=== PATIENT | male | born 1970 | race Caucasian/White ===

== ENCOUNTER 2018-04-20 11:09 | Emergency (ER) | payer OTHER ==
[~2018-04-20 11:09] MED LIST: ISOVUE-370 76%-LOCM 1 ML ONE
[2018-04-20 12:12] LABS: Bilirubin Negative (Negative); Blood, Urine Negative (Negative); Clarity CLEAR (Clear); Glucose, Urine (Dipstick) Negative (Negative); Leukocyte Negative (Negative); Nitrite Negative (Negative); Protein, Urine (Dipstick) Negative (Neg-Trace); Specific Gravity, Urine 1.017 (1.002-1.036); Urobilinogen 0.2 mg/dL (0.2-1.0)
[2018-04-20] MEDS ORDERED: Morphine 4 MG/ML VIAL ONE (13:48)
[2018-04-20] MEDS ORDERED: Ondansetron ODT 4 MG TAB ONE (13:48)
--- NOTE | 2018-04-20 14:49 | CT ---
CT ABDOMEN AND PELVIS WITH IV CONTRAST: Date: 04-20-18 History: Abdominal pain for 2-3 days. Nausea and vomiting and lower back pain. Comparison: 03-16-18 FINDINGS: The lung bases, liver, spleen, pancreas, bilateral adrenal glands, left kidney, and urinary bladder d emonstrate a normal CT appearance. There is a focal area of mild scarring involving the right kidney, with subcentimeter too small to characterize hypodense lesion at the inferior pole right kidney. The re is no hydronephrosis. Mild vascular calcification is seen in the abdominal aorta and involving the iliac arteries. There are post-surgical changes seen involving the most proximal sigmoid colon. There is colonic dive rticulosis present. The appendix is visualized and normal in caliber. There has been no interval terry ge when compared to the prior exam. IMPRESSION: No acute findings are seen in the abdomen or pelvis. CT scan of the abdomen and pelvis is overall sta ble compared to the prior exam. POS: [facility]
== END 2018-04-20 16:20 | disposition home or self-care (01) ==
LOC: ERS 11:09
DX: K57.30 Diverticulosis of large intestine without perforation or abscess without bleeding (principal); K21.9 Gastro-esophageal reflux disease without esophagitis; F17.210 Nicotine dependence, cigarettes, uncomplicated; F43.10 Post-traumatic stress disorder, unspecified
CPT/HCPCS: 74177; 81003; 96361; 96374; J2270; Q0162

== ENCOUNTER 2020-03-26 13:04 | Observation (INO) | payer OTHER ==
[2020-03-26] MEDS ORDERED: Lorazepam 2 MG/ML VIAL ONE (13:12)
[2020-03-26] MEDS ORDERED: Mag-Al 1200 mg/1200 mg/30 ML UDCUP ONE (14:23)
[2020-03-26] MEDS ORDERED: Lidocaine Viscous Sol 2% 15 ml UD Cup ONE (14:23)
[2020-03-26] MEDS ORDERED: Acetaminophen 325 MG TAB PO PRN ×2 (15:44→16:12)
[2020-03-26] MEDS ORDERED: Sodium Chloride 0.9% 1,000 ML IV SCH (15:44)
[2020-03-26] MEDS ORDERED: Ondansetron PF 4 MG/2 ML Vial IVP PRN ×2 (15:44→16:12)
[2020-03-26] MEDS ORDERED: Ondansetron ODT 4 MG TAB SL PRN (15:44)
[2020-03-26 15:59] VITALS: BMI 35.9
[2020-03-26] MEDS ORDERED: HYDROcodone/Acetaminophen 5/325 mg Tablet PO PRN (16:12)
[2020-03-26] MEDS ORDERED: Bisacodyl 10 MG SUPP PR PRN (16:12)
[2020-03-26] MEDS ORDERED: Senokot S 8.6-50 MG TAB PO PRN (16:12)
[2020-03-26] MEDS ORDERED: Guaifenesin DM 100-10/5 ML UDCUP PO PRN (16:12)
[2020-03-26] MEDS: Sodium Chloride 0.9% 1,000 ML IV SCH (16:42)
[2020-03-26 16:53] LABS: Hemoglobin A1c 5.5 % (4.0-6.0)
[2020-03-26 17:09] LABS: Lactic Acid 2.8 mmol/L (0.5-2.2)
--- NOTE | 2020-03-26 17:38 | HP ---
REASON FOR ADMISSION: Chest pain. HISTORY OF PRESENTING ILLNESS: The patient gives history of retrosternal chest pain which woke him up around 3 in the morning. He also developed some chills and sweating and in fact, threw up once. He finally woke his up around 7:30 in the morning, and she called EMS, and the patient was taken to [facility] from where he was transferred here. There are no complaints of cough or expectoration. No fever. No complaints of urinary frequency or urgency. The chest pain is 10/10 in intensity and is worse on deep coughing and manual pressure on the chest wall. There are no complaints of palpitations, PND, or orthopnea. No prior cardiac workup. PAST MEDICAL AND SURGICAL HISTORY: History of CVA in May of 2019, has had a complete stroke workup done per . He has had right hemiparesis and has difficulty with speech as well. He was also diagnosed with sleep apnea, but the patient is noncompliant with CPAP, seizure disorder, PTSD, colon resection for diverticulitis 8 years back, knee surgery when he was in high school for likely cartilage damage, hypertension, dyslipidemia, PTSD, the patient is an [place] , and dyslipidemia. CURRENT MEDICATIONS: Please note the patient cannot recall all of his medications, but he knows he is taking; 1. A pill for hypertension. 2. A statin. 3. Plavix. 4. No aspirin. 5. Oxcarbazepine twice daily. 6. Prozac 40 mg twice daily. 7. Vitamin D. 8. Ultram p.r.n. 9. Hydroxyzine p.r.n. ALLERGIES: TO MOTRIN WHICH CAUSES NAUSEA, BUT HE DOES NOT KNOW IF IT CAUSES ANY OTHER TROUBLE HE IS SCARED TO TAKE IT. PERSONAL HISTORY: Smokes half pack a day. Does not abuse alcohol or drugs. The patient is from last 8 years. FAMILY HISTORY: Both parents are healthy as far as he knows. Has a sister who has history of asthma. Code status is full. Power of united [place] attorney is his , Ms. Ashton. REVIEW OF SYSTEMS: CONSTITUTIONAL: Negative for weight loss or gain, ability to conduct usual activities. SKIN: Negative for rash, itching. EYES: Negative for double vision, pain. ENT/MOUTH: Negative for nose bleeding, neck stiffness, pain, tenderness. CARDIOVASCULAR: Negative for palpitations, dyspnea on exertion, orthopnea. RESPIRATORY: Negative for shortness of breath, wheezing, cough, hemoptysis, fever or night sweats. GASTROINTESTINAL: Negative for poor appetite, abdominal pain, heartburn, nausea, vomiting, constipation, or diarrhea. GENITOURINARY: Negative for urgency, frequency, dysuria, nocturia. MUSCULOSKELETAL: Negative for pain, swelling. NEUROLOGIC/PSYCHIATRIC: Negative for anxiety, depression. ALLERGY/IMMUNOLOGIC: Negative for skin rash, bleeding tendency. PHYSICAL EXAMINATION: GENERAL: The patient is a 49-year-old male, who is currently not in any acute distress. VITAL SIGNS: Blood pressure 158/100, pulse 60 per minute, respiratory rate 16 per minute, temperature 97.8 degrees Fahrenheit, and saturating 100% on room air. NECK: Supple. No elevated JVD. HEENT: Eyes; extraocular muscles intact. Pupils reacting to light. Oral cavity, mucous membranes are moist. No exudates or congestion. CARDIOVASCULAR SYSTEM: S1 and S2 heard. Regular rhythm. RESPIRATORY: Air entry 1+ bilateral. No rales or rhonchi. ABDOMEN: Soft. Bowel sounds heard. No tenderness, rigidity, or guarding. EXTREMITIES: No peripheral edema or calf tenderness. VASCULAR SYSTEM: Peripheral pulses 2+ bilateral. No ischemic ulcerations or gangrene. CENTRAL NERVOUS SYSTEM: No gross focal deficits noted. The patient is alert, awake, and oriented. The patient is lethargic at present as he received Ativan in the ER. Otherwise, no obvious hallucinations or delusions. LABORATORY DATA: CT aortic dissection protocol done, shows no evidence of dissection. Ascending aorta is dilated with no dissection. It measures around 4.2 cm. There is no PE. There is prominent calcification in mid LAD. Large bulging disk at L4-5. Influenza A and B antigens are negative. EKG done, shows sinus bradycardia at 53 beats per minute with nonspecific ST-T wave changes. Serum glucose 183, BUN 16, creatinine 1.1, serum bicarb 18. Electrolytes are stable. Lactic acid is 3.9. Liver enzymes within normal limits. Troponin x2 negative. Albumin is 4.6, lipase is 65. D-dimer 0.38. White count of 13, H and H 16 and 49, platelet count 430, with 78% neutrophils, MCV is 91. CLINICAL IMPRESSION AND PLAN: The patient will be under observation on telemetry for atypical chest pain, but has multiple risk factors for acute coronary syndrome. We will place him on nitroglycerin paste half-inch q.8 hourly. Continue his Plavix as before. A small dose of Lopressor, Crestor. We will continue his Neurontin, oxcarbazepine, and Prozac as before. Echo with 2D Doppler to check for aortic valve in view of ascending aortic dilatation. We will also obtain Cardiology consultation as the patient might require ongoing evaluation of this area. He has had calcification of his mid left anterior descending artery and recent cerebrovascular accident as well, the patient is obese and likely is a diabetic as well with serum sugars of 180 on arrival. We will obtain HbA1c level. I have given complete updates to the patient's , Ms. Ashton. She will be calling us with exact dosing of his medications once she reaches home. Job ID: [id number]
[2020-03-26 17:41] LABS: Troponin I Less than 0.010 ng/mL (< 0.028)
[2020-03-26] MEDS: Famotidine/PF 20 mg/2ml Vial SLOW IVP SCH ×2 (20:28→23:18)
[2020-03-26] MEDS: Gabapentin 300 MG CAP PO SCH (20:31)
[2020-03-26] MEDS: Metoprolol Tartrate 25 MG TAB PO SCH (20:31)
[2020-03-26] MEDS: FLUoxetine HCl 20 MG CAP PO SCH (20:31)
[2020-03-26] MEDS: Nitroglycerin 2% Ointment 1 INCH/1 GM Packet TOP SCH (20:37)
[2020-03-26 21:00] LABS: Troponin I 0.037 ng/mL (< 0.028)
[2020-03-26] MEDS ORDERED: Rosuvastatin 20 MG TAB PO SCH (21:00)
[2020-03-26] MEDS ORDERED: OXcarbazepine 300 MG TAB PO SCH (21:00)
[2020-03-27 04:49] LABS: #Lymphocytes 1.9 thou/uL (1.20-3.40); #Monocytes 1.1 thou/uL (0.11-0.59); #Neutrophils 8.8 thou/uL (1.40-6.50); %Basophils 0.3 % (0.0-1.0); %Eosinophils 0.1 % (0.0-10.0); %Lymphocytes 16.2 % (21.0-51.0); %Monocytes 9.6 % (0.0-10.0); %Neutrophils 73.8 % (42.0-75.0); Hemoglobin 15.1 g/dL (14.0-18.0); Mean Corpuscular HGB CONC 32.5 g/dL (32.0-36.0); Mean Corpuscular Hemoglobin 30.3 pg (27.0-31.0); Mean Corpuscular Volume 93.3 fL (78.0-98.0); Mean Platelet Volume 7.4 fL (7.4-10.4); Platelet Count 392 thou/uL (130-400); RBC Distribution Width 12.2 % (11.5-14.5); Red Blood Cell (RBC) Count 4.99 mill/uL (4.70-6.10); White Blood Cell (WBC) Count 11.9 thou/uL (4.8-10.8)
[2020-03-27 05:02] LABS: Anion Gap 14 mmol/L (10-20); BUN (Urea Nitrogen) 13 mg/dL (8.9-20.6); Calc. Creatinine Clearance 110 mL/min (70-130); Calcium 9.1 mg/dL (7.8-10.44); Carbon Dioxide 21 mmol/L (22-29); Cardiac Risk 5.1 (Less than 4.5); Chloride 106 mmol/L (98-107); Cholesterol 215 mg/dl (< 200 Desired); Estimated GFR-MDRD 78; Glucose 109 mg/dL (70-105); HDL Cholesterol 42 mg/dL (>60 Neg Risk); LDL Cholesterol, Calculated 155 mg/dL; Potassium 4.1 mmol/L (3.5-5.1); Sodium 137 mmol/L (136-145); Triglycerides 91 mg/dL (Less than 150)
[2020-03-27] MEDS: traMADol HCl 50 MG TAB PO PRN ×2 (05:24→12:13)
[2020-03-27] MEDS: Sodium Chloride 0.9% 1,000 ML IV SCH (05:27)
[2020-03-27] MEDS: Nitroglycerin 2% Ointment 1 INCH/1 GM Packet TOP SCH (05:29)
[2020-03-27] MEDS ORDERED: Clopidogrel Bisulfate 75 MG TAB PO SCH (09:00)
[2020-03-27] MEDS ORDERED: OXcarbazepine 600 MG TAB PO SCH (09:00)
[2020-03-27] MEDS ORDERED: OXcarbazepine 300 MG TAB PO SCH (09:00)
[2020-03-27] MEDS ORDERED: Enoxaparin Sodium 40 MG/0.4 ML SYRINGE SC SCH (09:00)
[2020-03-27] MEDS ORDERED: ADENOSINE 60 MG/20 ML VIAL ONE (09:26)
[2020-03-27] MEDS: Famotidine/PF 20 mg/2ml Vial SLOW IVP SCH (09:32)
[2020-03-27] MEDS: FLUoxetine HCl 20 MG CAP PO SCH (09:32)
[2020-03-27] MEDS: Gabapentin 300 MG CAP PO SCH (09:32)
[2020-03-27] MEDS: Metoprolol Tartrate 25 MG TAB PO SCH (09:33)
--- NOTE | 2020-03-27 09:57 | PDOC.HOSPP ---
- Subjective Encounter Date: 03/27/20 Encounter Time: 09:40 Subjective: no current chest pain or palp or sob is npo for stress test responds well to verbal questions - Objective Vital Signs & Weight: Vital Signs (12 hours) Temp Pulse Resp BP BP Pulse Ox 03/27/20 07:58 99.0 F 84 16 123/69 97 03/27/20 03:10 98.5 F 47 L 18 134/59 L 95 03/26/20 23:25 96/68 Weight Weight 196 lb 15.602 oz I&O: 03/26/20 03/27/20 03/28/20 06:59 06:59 06:59 Intake Total 1358 Output Total 500 Balance 858 Result Diagrams: 03/27/20 04:22 03/27/20 04:22 Additional Labs: Accuchecks 03/26/20 16:23 POC Glucose 139 H Hospitalist ROS - Medication Medications: Active Medications Generic Name Dose Route Start Last Admin Trade Name Freq PRN Reason Stop Dose Admin Hydrocodone Bitart/Acetaminophen 1 tab 03/26/20 16:12 03/26/20 20:33 [place] 5/325 PO 1 tab Q4H PRN Administration Moderate Pain (4-6) Clopidogrel Bisulfate 75 mg 03/27/20 09:00 03/27/20 09:33 Plavix PO 75 mg DAILY [place] Administration Enoxaparin Sodium 40 mg 03/27/20 09:00 03/27/20 09:35 Lovenox SC 40 mg 0900 [place] Administration Famotidine 20 mg 03/26/20 21:00 03/27/20 09:32 Pepcid SLOW IVP 20 mg Q12HR [place] Administration Gabapentin 300 mg 03/26/20 21:00 03/27/20 09:32 Neurontin PO 300 mg BID [place] Administration Sodium Chloride 1,000 mls @ 100 mls/hr 03/26/20 16:15 03/27/20 05:27 Normal Saline 0.9% IV 1,000 mls .Q10H [place] Administration Metoprolol Tartrate 25 mg 03/26/20 21:00 03/27/20 09:33 Lopressor PO 25 mg BID [place] Administration Nitroglycerin 0.5 inch 03/26/20 22:00 03/27/20 05:29 Nitro-Bid 2% Ointment TOP 0.5 inch Q8HR [place] Administration Oxcarbazepine 600 mg 03/27/20 09:00 03/27/20 09:33 Trileptal PO 600 mg BID [place] Administration Rosuvastatin Calcium 20 mg 03/26/20 21:00 03/26/20 20:31 Crestor PO 20 mg HS [place] Administration Tramadol HCl 50 mg 03/26/20 16:12 03/27/20 05:24 Ultram PO 50 mg Q6H PRN Administration Moderate Pain (4-6) - Exam General Appearance: awake alert Eye: PERRL, anicteric sclera ENT: no oropharyngeal lesions, moist mucosa Neck: supple, no JVD Heart: RRR, no murmur Respiratory: no wheezes, no rales Gastrointestinal: soft, non-tender, non-distended, normal bowel sounds Extremities: no cyanosis, no edema Neurological: hemiplegia, speech deficit Psychiatric: normal affect, A&O x 3 Hosp A/P (1) Chest pain Code(s): R07.9 - CHEST PAIN, UNSPECIFIED Status: Resolved (2) Ascending aortic aneurysm Status: Chronic (3) H/O: CVA (cerebrovascular accident) Code(s): Z86.73 - PRSNL HX OF TIA (TIA), AND CEREB INFRC W/O RESID DEFICITS Status: Chronic (4) Dyslipidemia Code(s): E78.5 - HYPERLIPIDEMIA, UNSPECIFIED Status: Chronic (5) PTSD (post-traumatic stress disorder) Code(s): F43.10 - POST-TRAUMATIC STRESS DISORDER, UNSPECIFIED Status: Chronic - Plan for stress test today echo in view of asc aortic aneurysm to look for aortic valve, ef is chest pain free now on plavix, crestor, lopressor, prozac and gabapentin hemostable await cardio opinion
--- NOTE | 2020-03-27 12:22 | CON ---
DATE OF CONSULTATION: HISTORY OF PRESENT ILLNESS: The patient is an unfortunate 49-year-old gentleman , who has previously suffered a cerebrovascular accident and presents with left- sided chest discomfort. The patient suffered a CVA in May of 2019. He has right hemiparesis and difficulty with aphasia. The patient was in his usual state of health when he presented with left-sided chest discomfort. This apparently lasted for several hours. The patient eventually came to the emergency room. He states his chest pain eventually resolved yesterday evening. The patient denies having any present chest discomfort. The patient states that the pain was left- sided and was was severe. It did not radiate. PAST MEDICAL HISTORY: 1. CVA. 2. Hypertension. 3. Seizure disorder. 4. PTSD. SOCIAL HISTORY: Long history of tobacco use. MEDICATIONS: 1. Tramadol 50 b.i.d. 2. Gabapentin 600 daily. 3. Prozac 40 daily. 4. Lipitor 40 at bedtime. 5. Norvasc 10 daily. ALLERGIES: NO KNOWN DRUG ALLERGIES. REVIEW OF SYSTEMS: Ten-point system otherwise unremarkable. No history of easy bruising or bleeding. PHYSICAL EXAMINATION: GENERAL: A well-developed gentleman, in no acute distress. VITAL SIGNS: Blood pressure 123/69. NECK: No jugular venous distention. LUNGS: Clear to auscultation. HEART: Regular rate and rhythm. Normal S1. Normal S2. ABDOMEN: Distended. EXTREMITIES: Showed trace edema. VASCULAR: Radial pulse 2+. LABORATORY DATA: Sodium 137, potassium 4.1, chloride 106, bicarbonate 21, BUN 13, creatinine 1.0, and glucose 109. Troponin was 0.037. White blood cell count was 11.9, hemoglobin 15.1, hematocrit 46.5, and his platelets are 392. IMAGING DATA: His EKG revealed sinus bradycardia, otherwise normal ECG. His CT scan revealed a mildly dilated aortic root with calcification of left anterior descending artery. IMPRESSION AND PLAN: 1. Chest pain with some features suggestive of angina. 2. Hypertension. 3. Probable coronary artery disease. 4. History of cerebrovascular accident. 5. Right hemiparesis. 6. Dyslipidemia. This gentleman presents with chest pain. In his EKG, the patient had prolonged chest discomfort without evidence of any ECG changes suggestive of ischemia. The patient's cardiac enzymes are not suggestive of an acute myocardial infarction. The patient will undergo a stress Lexiscan stress test to evaluate for evidence of ischemia and to determine cardiac risk. Further recommendations will follow. Job ID: [id number] [facility]
[2020-03-27 17:02] VITALS: BP 152/92; TEMP 98.3
--- NOTE | 2020-03-27 17:04 | NM ---
EXAM: NM Cardiac Stress W EF WF PROVIDED CLINICAL HISTORY: Chest pain, elevated troponin. COMPARISON: None FINDINGS: There is normal uptake and distribution of radiotracer seen throughout the left ventricular myocardiu m on both the stress and resting acquisitions. No significant reversible defect is identified. Quantitative analysis also shows no significant reversible defect. Gated images demonstrate normal ve ntricular wall motion and wall thickening. Rotating planar images demonstrate patient motion. The calculated left ventricular ejection fraction is 59%. IMPRESSION: 1. Normal myocardial perfusion study without evidence of a reversible defect seen to suggest ischemia . 2. Calculated left ventricular ejection fraction is 59%.
[2020-03-28] MEDS ORDERED: FLUoxetine HCl 20 MG CAP PO SCH (09:00)
--- NOTE | 2020-03-28 12:23 | DIS ---
DATE OF ADMISSION: 03/26/2020 DATE OF DISCHARGE: 03/27/2020 DISCHARGE DISPOSITION: Home. PRIMARY DISCHARGE DIAGNOSIS: Chest pain, mild ascending aortic aneurysm, prior history of cerebrovascular accident, dyslipidemia, history of posttraumatic stress disorder. PROCEDURES DONE DURING HOSPITALIZATION: The patient had a CT dissection protocol done on admission, which incidentally showed a 4.2 cm wide ascending aorta. There is no evidence of aortic dissection. Mildly dilated ascending aorta. There is prominent calcification of the mid LAD. There was a large bulging disk at L4-5. Nuclear stress test done showed normal myocardial perfusion without evidence of reversible defect. Calculated EF was 59%. Echo with 2D Doppler done showed an ejection fraction of 55%-60%. Trivial aortic regurgitation was noted. Aortic valve cusp separation was 2.44 cm. Aortic root dimension was 3.67 cm. LV systolic dimension 2.64 cm. LV volume diastolic was 53.7 mL. LV volume systolic was 25.6 mL. LVOT diameter was 2.16 cm. LV diastolic dimension was 3.58 cm. Influenza A and B antigens were negative. Blood cultures x1 was negative, had a white count of 13 on the day of admission with discharge numbers of 11.9, H and H 15 and 46, platelet count 392 with 73% neutrophils. D-dimer was 0.3. Total cholesterol 215, triglycerides 91, LDL 155, HDL 42. BUN 16, creatinine 1.1. HB A1c 5.5. Serum sugar was 183 on admission. DISCHARGE MEDICATION: 1. Norvasc 10 mg p.o. daily. 2. Atorvastatin 40 mg p.o. at bedtime. 3. Vitamin D2 daily. 4. Prozac 40 mg p.o. daily. 5. Gabapentin 600 mg p.o. at bedtime. 6. Oxcarbazepine 600 mg twice daily. 7. Ultram 50 mg twice daily. ALLERGIES: NAPROSYN AND IBUPROFEN. INPATIENT CONSULT: Dr. Healy for Cardiology. DISCHARGE PLAN: The patient to follow up with his primary care physician at the [facility] in [place] in a week. He needs to follow up with Dr. Healy in 2 to 3 weeks. BRIEF COURSE DURING HOSPITALIZATION: The patient initially got admitted on the with complaints of chest pain which was retrosternal. He also had some chills and sweating with this episode. Initial CT dissection protocol done revealed 4.2 cm ascending aorta being dilated. In view of above-mentioned factors, patient was placed under observation on telemetry. He has had consultation with Dr. Healy for Cardiology. Nuclear stress test done showed no reversible ischemia. Echo showed normal aortic valve. He remained asymptomatic after initial presentation of chest pain. He is hemodynamically stable and will be shortly discharged home. Please see a [id number] documentation for the day of discharge on [employer]. Job ID: [id number]
== END 2020-03-27 19:50 | disposition home or self-care (01) ==
LOC: ERS 13:04 → 2NO 15:49
PROVIDERS: ADMIT Internal Medicine; ATTEND Internal Medicine
DX: R07.89 Other chest pain (principal); I10 Essential (primary) hypertension; G40.909 Epilepsy, unspecified, not intractable, without status epilepticus; F43.10 Post-traumatic stress disorder, unspecified; E78.5 Hyperlipidemia, unspecified; I69.320 Aphasia following cerebral infarction; I69.351 Hemiplegia and hemiparesis following cerebral infarction affecting right dominant side; F17.210 Nicotine dependence, cigarettes, uncomplicated; G47.30 Sleep apnea, unspecified; E66.9 Obesity, unspecified; Z68.36 Body mass index [BMI] 36.0-36.9, adult; Z79.899 Other long term (current) drug therapy; Z88.6 Allergy status to analgesic agent
CPT/HCPCS: 36415; 36416; 78452; 80048; 80061; 83036; 83605; 85025; 93005; 93017; 93306; 94760; 96361; 96372; 96374; 96375; A9500; G0378; J0153; J1650; J2060; S0028

== ENCOUNTER 2022-02-02 15:19 | Emergency (ER) | payer OTHER | END 2022-02-02 17:25 | disposition home or self-care (01) | LOC: ERS 15:19 | DX: R60.0 Localized edema (principal); I10 Essential (primary) hypertension; F17.210 Nicotine dependence, cigarettes, uncomplicated ==